=== PATIENT | male | born 1940 | race Caucasian/White ===

== ENCOUNTER 2022-08-16 07:35 | Emergency (ER) | payer MEDICARE, SELFPAY ==
[2022-08-16 07:47] VITALS: BP 140/69; PULSE 53; RESP 18; TEMP 36.5; O2SAT 98; BMI 23.3
--- NOTE | 2022-08-16 08:22 | ED.GENADUL1 ---
HPI - General Adult General Chief complaint: Fall Stated complaint: FALL, NO INJURY Time Seen by Provider: 08/16/22 07:42 Source: patient Mode of arrival: walk-in History of Present Illness HPI narrative: 82-year-old male presented for evaluation following an episode where she slipped out of bed and landed on his buttock. He didn't hit his head and doesn't have any pain or any symptoms. He just wanted to get checked out. He was brought in by paramedics and then later joined by his .this occurred just before coming into the emergency department. Related Data Home Medications Medication Instructions Recorded Confirmed apixaban 5 mg tablet (Eliquis) 5 mg PO Q12H 08/16/22 08/16/22 aspirin 81 mg tablet,delayed 81 mg PO QDAY 08/16/22 08/16/22 release levetiracetam 1,000 mg tablet 1,000 mg PO Q12H 08/16/22 08/16/22 levothyroxine 50 mcg tablet 50 mcg PO QDAY 08/16/22 08/16/22 rosuvastatin 10 mg tablet 10 mg PO QDAY 08/16/22 08/16/22 sertraline 50 mg tablet 50 mg PO QDAY 08/16/22 08/16/22 Allergies Allergy/AdvReac Type Severity Reaction Status Date / Time No Known Drug Allergies Allergy Verified 08/16/22 07:46 Review of Systems ROS Narrative A ten point review of systems is negative except as noted above. Exam Narrative Exam Narrative: Nurses note and vital signs reviewed and patient is not hypoxic. General: The patient appears well and in no apparent distress. Patient is resting comfortably on cart. Skin: Warm, dry, no pallor noted. There is no rash noted. Head: Normocephalic, atraumatic Eye: Normal conjunctiva, no drainage Ears, Nose, Mouth, and Throat: oral mucosa is moist. Nares patent. Cardiovascular: tachycardic Respiratory: Patient is in no distress, no accessory muscle use, lungs are clear to auscultation, no wheezing, rales or rhonchi Back: non-tender including cervical thoracic and lumbar spines. GI: Normal bowel sounds, no tenderness to palpation, no masses appreciated. No rebound, guarding, or rigidity noted. Musculoskeletal: The patient has no evidence of calf tenderness, no pitting edema, symmetrical pulses noted bilaterally. palpation of all four extremities shows no tenderness. Neurological: A&O x4, normal speech Psychiatric: Cooperative Constitutional Vital Signs - 24 hr 08/16/22 07:47 Temperature 97.7 F Pulse Rate [Monitor] 53 L Respiratory Rate 18 Blood Pressure [Left Arm] 140/69 H Pulse Oximetry 98 Oxygen Delivery Method Room Air Course Vital Signs Vital signs: Vital Signs Temperature 97.7 F 08/16/22 07:47 Pulse Rate 53 L 08/16/22 07:47 Respiratory Rate 18 08/16/22 07:47 Blood Pressure 140/69 H 08/16/22 07:47 Pulse Oximetry 98 08/16/22 07:47 Oxygen Delivery Method Room Air 08/16/22 07:47 Temperature 97.7 F 08/16/22 07:47 Pulse Rate 53 L 08/16/22 07:47 Respiratory Rate 18 08/16/22 07:47 Blood Pressure 140/69 H 08/16/22 07:47 Pulse Oximetry 98 08/16/22 07:47 Oxygen Delivery Method Room Air 08/16/22 07:47 Medical Decision Making [facility] Narrative Medical decision making narrative: the patient has a normal physical exam and does not require any radiographic evaluation. He is ambulatory at his normal baseline. Findings are discussed with the patient and his . Differential Diagnosis Differential Diagnosis: fall, contusion Discharge Plan Discharge Chief Complaint: Fall Clinical Impression: Fall Patient Disposition: Home, Self-Care Time of Disposition Decision: 08:20 Condition: Good Mode of Transportation: Private Vehicle Prescriptions / Home Meds: No Action Eliquis 5 mg tablet 5 mg PO Q12H aspirin 81 mg tablet,delayed release (DR/EC) 81 mg PO QDAY levetiracetam 1,000 mg tablet 1,000 mg PO Q12H levothyroxine 50 mcg tablet 50 mcg PO QDAY rosuvastatin 10 mg tablet 10 mg PO QDAY sertraline 50 mg tablet 50 mg PO QDAY Instructions: Fall Prevention (ED) Stand Alone Forms: Portal Instructions Referrals: Physician,Non-Staff, MD [Primary Care Provider] - 1 week
== END 2022-08-16 08:32 | disposition home or self-care (01) ==
PROVIDERS: Emergency Provider Emergency Medicine
DX: Z04.3 Encounter for examination and observation following other accident (principal); Z79.82 Long term (current) use of aspirin; Z79.899 Other long term (current) drug therapy; Z79.890 Hormone replacement therapy
CPT/HCPCS: 99283

== ENCOUNTER 2024-02-22 10:30 | Outpatient (REF) | payer MEDICARE, SELFPAY ==
[2024-02-22 12:18] LABS: Bilirubin Urine NEGATIVE (NEGATIVE); Blood Urine MODERATE (NEGATIVE); Clarity Urine CLOUDY (CLEAR); Color Urine LT. YELLOW (YELLOW); Glucose Urine UA NEGATIVE (NEGATIVE); Ketones Urine NEGATIVE (NEGATIVE); Leukocyte Esterase Urine LARGE (NEGATIVE); Nitrite Urine POSITIVE (NEGATIVE); Protein Urine 100 mg/dL (NEG/TRACE); Specific Gravity Urine 1.025 (1.005-1.025); Urobilinogen Urine >=8.0 EU/dL (0.2-1.0)
== END 2024-02-22 10:31 | disposition home or self-care (01) ==
LOC: LAB 10:30
DX: I69.354 Hemiplegia and hemiparesis following cerebral infarction affecting left non-dominant side (principal); R82.998 Other abnormal findings in urine
CPT/HCPCS: 81003; 87086; 87150; 87186